=== PATIENT | male | born 1950 | race Caucasian/White ===

== ENCOUNTER → 2017-11-29 | Outpatient (CLI) | payer BC, MEDICARE | END | disposition home or self-care (01) | LOC: RAD 14:24 | PROVIDERS: ATTEND Surgery | DX: I65.21 Occlusion and stenosis of right carotid artery (principal) | CPT/HCPCS: 70496; 70498 ==

== ENCOUNTER 2017-12-24 11:36 | Day surgery (SDC) | payer BC ==
[~2017-12-24] VITALS: Ht 167.6 cm; Wt 53.1 kg
[~2017-12-24 11:36] MED LIST changes: -FENTANYL PF 100 MCG/2ML ONE; -FLUMAZENIL 0.1 MG/1 ML, 5ML ONE; -HEPARIN 1,000 UNITS/ML, 10ML ONE; -MIDAZOLAM 1 MG/ML, 5ML ONE; -NALOXONE 1 MG/ML, 2ML ONE; -NITROGLYCERIN 5 MG/ML, 10ML ONE; -PROTAMINE SULFATE 10 MG/ML, 25ML ONE
[2017-12-24] MEDS ORDERED: SODIUM CHLORIDE 0.9% 1,000 ML IV SCH ×2 (13:53→17:00)
[2017-12-24] MEDS ORDERED: VISIPAQUE 270 MG/ML, 50ML BOTTLE ONE (14:00)
[2017-12-24] MEDS ORDERED: CEFAZOLIN PMX 1GM/50ML 50 ML IV ONE (14:00)
[2017-12-24 14:04] VITALS: BP 157/84
[2017-12-24] MEDS ORDERED: LIDOCAINE-MPF 2%, 2ML ONE (14:16)
[2017-12-24 16:17] VITALS: BP 147/83
[2017-12-24] MEDS ORDERED: ONDANSETRON 2MG/ML, 2ML IVPush PRN (17:00)
[2017-12-24] MEDS ORDERED: ACETAMINOPHEN 500 MG TABLET PO PRN (17:00)
[2017-12-24] MEDS ORDERED: MORPHINE SULFATE 4 MG/ML, 1ML IV PRN ×2 (17:00→17:15)
[2017-12-24] MEDS ORDERED: HYDROcodone/APAP 5/325 TABLET PO PRN (17:00)
[2017-12-24] MEDS ORDERED: ATORVASTATIN 40 MG TABLET PO SCH (21:00)
[2017-12-25] MEDS ORDERED: ASPIRIN 81 MG TABLET EC PO SCH (06:00)
== END 2017-12-24 18:50 | disposition home or self-care (01) ==
LOC: RAD 11:36 → 4NOR 16:10 → RAD 18:50
PROVIDERS: ATTEND Surgery
DX: I70.213 Atherosclerosis of native arteries of extremities with intermittent claudication, bilateral legs (principal); E78.5 Hyperlipidemia, unspecified; I10 Essential (primary) hypertension; Z79.82 Long term (current) use of aspirin; Z72.89 Other problems related to lifestyle; Z87.891 Personal history of nicotine dependence
CPT/HCPCS: 36200; 75630; 99156; 99157; C1760; C1769; C1894; J0690; J3490; J7030; Q9966

== ENCOUNTER → 2017-12-24 | Outpatient (CLI) | payer BC ==
[~2017-12-24] MED LIST: ACET-1600 PO; ASPI-496 PO; ATOR40TA78 PO; FENTANYL PF 100 MCG/2ML ONE; FLUMAZENIL 0.1 MG/1 ML, 5ML ONE; HEPARIN 1,000 UNITS/ML, 10ML ONE; MIDAZOLAM 1 MG/ML, 5ML ONE; NALOXONE 1 MG/ML, 2ML ONE; NITROGLYCERIN 5 MG/ML, 10ML ONE; PROTAMINE SULFATE 10 MG/ML, 25ML ONE
== END | disposition home or self-care (01) ==
LOC: CVU 11:35
PROVIDERS: ATTEND Psychiatry & Neurology Neurology with Special Qualifications in Child Neurology
DX: I70.212 Atherosclerosis of native arteries of extremities with intermittent claudication, left leg (principal); Z87.891 Personal history of nicotine dependence
CPT/HCPCS: 93970; J2250; J3010; J1644; J2720; J2310